=== PATIENT | female | born 1930 | race Asian ===

== ENCOUNTER 2020-10-27 13:41 | Emergency (ER) | payer MEDICARE, MEDICAID ==
[~2020-10-27] VITALS: Ht 157.5 cm; Wt 40.8 kg
[2020-10-27 13:41] VITALS: BP_SYST 114
[~2020-10-27 13:41] MED LIST: AMLO5TAB4 PO; CALC-1263 PO; LOSA25TA3 PO
--- NOTE | 2020-10-27 13:41 | NUR ---
BROUGHT BACK TO BED #7 AND TRIAGED. REPORT GIVEN TO LIZ
--- NOTE | 2020-10-27 13:46 | NUR ---
Yoel myers in EDM - 10/27/20 at 1630 by SDEDSM AMARA Arteaga at bedside examining patient.
--- NOTE | 2020-10-27 13:46 | NUR ---
ER at bedside examining patient.
[2020-10-27 14:13] LABS: BASOPHILS % (AUTO) 0.6 % (0.0-2.0); EOSINOPHILS % (AUTO) 0.6 % (0.0-4.0); HEMATOCRIT 32.9 % (36-48); HEMOGLOBIN 11.1 g/dL (12.0-16.0); LYMPHOCYTES # (AUTO) 2.2 K/uL (1.0-5.5); LYMPHOCYTES % (AUTO) 28.4 % (20.5-51.5); MEAN CORPUSCULAR HEMOGLOBIN 33 pg (27-31); MEAN CORPUSCULAR HGB CONC 34 % (32-36); MEAN CORPUSCULAR VOLUME 97 fL (79.0-98.0); MONOCYTES % (AUTO) 12.6 % (1.7-9.3); NEUTROPHILS # (AUTO) 4.4 K/uL (1.8-7.7); NEUTROPHILS % (AUTO) 57.8 % (40.0-70.0); PLATELET COUNT (AUTO) 269 K/uL (130-430); RED BLOOD CELL COUNT(AUTO) 3.38 MIL/uL (4.2-6.2); RED CELL DISTRIBUTION WIDTH 13.9 % (9.0-15.0); WHITE BLOOD COUNT (AUTO) 7.6 K/uL (4.8-10.8)
--- NOTE | 2020-10-27 14:13 | NUR ---
Patient transported to radiology via WHEELCHAIR, accompanied by TECH.
[2020-10-27 14:17] LABS: ANION GAP 5 (5-15); CALCIUM 8.2 mg/dL (8.4-11.0); CHLORIDE 99 mmol/L (98-107); CREATININE 0.56 mg/dL (0.55-1.30); GLUCOSE 109 mg/dL (70-99); POTASSIUM 4.2 mmol/L (3.5-5.1); SODIUM SERUM 134 mmol/L (136-145); UREA NITROGEN, BLOOD 16 mg/dL (8-21)
--- NOTE | 2020-10-27 14:19 | NUR ---
PT BROUGHT TO ER BY DAUGHTER FOR COMPLAINTS OF ABDOMINAL PAIN. PT HAD SURGERY FOR A BOWEL OBSTRUCTION ON OCTOBER 09 OF THIS YEAR AND IS STILL HAVING PAIN TODAY. 7/10 PAIN NOTED.
[2020-10-27 14:21] LABS: ALANINE AMINOTRANSFERASE 21 U/L (12-78); ALBUMIN 2.7 g/dL (3.4-4.8); AMYLASE 67 U/L (0-100); ASPARTATE AMINOTRANSFERASE 18 U/L (10-37); C-REACTIVE PROTEIN QUANT 3.2 mg/dL (0-0.5); LACTATE DEHYDROGENASE 197 U/L (81-234); LIPASE 156 U/L (73-393); TOTAL BILIRUBIN 0.4 mg/dL (0.0-1.0)
[2020-10-27 14:22] LABS: PROTHROMBIN TIME 10.2 SECS (9.5-12.5)
[2020-10-27 14:43] LABS: BILIRUBIN,URINE NEGATIVE (NEGATIVE); BLOOD, URINE NEGATIVE (NEGATIVE); CLARITY/URINE CLEAR (CLEAR); COLOR,URINE YELLOW (YELLOW); GLUCOSE,URINE NEGATIVE (NEGATIVE); KETONES,URINE NEGATIVE (NEGATIVE); LEUKOCYTE ESTERASE ,URINE TRACE (NEGATIVE); NITRITE, URINE NEGATIVE (NEGATIVE); PH,URINE 6.5 (5.0-8.0); PROTEIN URINE NEGATIVE (NEGATIVE); UROBILINOGEN,URINE 0.2 (0.2-1.0)
[2020-10-27 14:51] LABS: BACTERIA,URINE RARE /HPF (None Seen); RBC,URINE 0-3 /HPF (0-3)
--- NOTE | 2020-10-27 15:59 | NUR ---
DR MUÑOZ SPEAKING WITH DR GILES. AWAITING FURTHER ORDERS
[2020-10-27 16:25] VITALS: BP_SYST 107
--- NOTE | 2020-10-27 16:26 | NUR ---
Patient given written and verbal discharge instructions and verbalizes understanding. ER MD discussed with patient the results and treatment provided. Patient in stable condition. ID arm band removed. Patient educated on pain management and to follow up with PMD. Pain Scale 4/10. Opportunity for questions provided and answered. Medication side effect fact sheet provided.
== END 2020-10-27 16:26 | disposition home or self-care (01) ==
LOC: SED 13:41
DX: R10.84 Generalized abdominal pain (principal); R11.2 Nausea with vomiting, unspecified; I10 Essential (primary) hypertension; Z79.899 Other long term (current) drug therapy
CPT/HCPCS: 36415; 76376; 80053; 81000; 82150; 83605; 83615; 83690; 84484; 85025; 85610-TC; 85730-TC; 86140; 99284